=== PATIENT | male | born 1955 ===

== ENCOUNTER 2017-03-15 07:00 | Inpatient (IN) | payer OTHER ==
[~2017-03-15] VITALS: Ht 160 cm; Wt 81.6 kg
[2017-03-29] VITALS (12 sets, daily range): BP systolic 112–166; BP diastolic 64–102
[2017-03-29] MEDS ORDERED: CRESTOR40 MG ORAL (05:52)
[2017-03-29] MEDS ORDERED: CITALOPRAM HBR10 M1 ORAL (05:52)
[2017-03-29] MEDS ORDERED: ASPIRIN325 MG ORAL (05:52)
[2017-03-29] MEDS ORDERED: FOLIC ACID1 MG ORAL (05:52)
[2017-03-29] MEDS ORDERED: RAMIPRIL5 MG ORAL (05:52)
[2017-03-29] MEDS ORDERED: FAMOTIDINE20 MG ORAL (05:52)
[2017-03-29] MEDS ORDERED: METOPROLOL SUC100 MG ORAL (05:52)
[2017-03-29] MEDS ORDERED: LR 1000ml 1,000 ML IVLG SCH (06:13)
[2017-03-29] MEDS ORDERED: Metoclopramide 10mg/2ml Inj IVP PRN ×2 (06:15→07:30)
[2017-03-29] MEDS ORDERED: oxyCODONE HCL/Acetaminophen 5/325mg ORAL PRN (06:15)
[2017-03-29] MEDS ORDERED: Ketorolac 30mg Inj IV PRN (06:15)
[2017-03-29] MEDS ORDERED: Norco 7.5mg/325mg tab ORAL PRN ×2 (06:15→07:30)
[2017-03-29] MEDS ORDERED: Midazolam 2mg/2ml Inj IVP PRN (06:15)
[2017-03-29] MEDS ORDERED: DiphenhydrAMINE 50mg/ml Inj IVP PRN (06:15)
[2017-03-29] MEDS ORDERED: Ketorolac 60mg Inj IV PRN (06:15)
[2017-03-29] MEDS ORDERED: LORazepam Inj 2mg/ml 1ml IV PRN (06:15)
[2017-03-29] MEDS ORDERED: Norco 5mg/325mg tab ORAL PRN ×2 (06:15→07:30)
[2017-03-29] MEDS ORDERED: Hydromorphone 0.5mg/0.5ml inj IVP PRN (06:15)
[2017-03-29] MEDS ORDERED: Acetaminophen (Non formulary) 100 ML IV ONE (06:15)
[2017-03-29] MEDS ORDERED: Atropine Inj 1mg/10ml Syr IV PRN (06:15)
[2017-03-29] MEDS ORDERED: fentaNYL 100 mcg/2 mL IV PRN (06:15)
--- NOTE | 2017-03-29 06:15 | Anethesia Preoperative Eval ---
Anesthesia Pre-op PMH/ROS General Date of Evaluation: Mar 29, 2017 Time of Evaluation: 07:06 Anesthesiologist: Perri ASA Score: ASA 3 Mallampati Score Class I : Soft palate, uvula, fauces, pillars visible Class II: Soft palate, uvula, fauces visible Class III: Soft palate, base of uvula visible Class IV: Only hard plate visible Mallampati Classification: Class II Surgeon: Elizabeth Diagnosis: Back Pain Surgical Procedure: ALIF L3-4, L4-5, PSF L3-4, L4-5 Anesthesia History: none Social History: current smoker Family History: no anesthesia problems Allergies: Coded Allergies: IBUPROFEN (Verified Allergy, Severe, swollen eyes, 03/14/17) Medications: see eMAR Past Medical History Cardiovascular: Reports: HTN, CAD - Angina, CABG Pulmonary: Reports: other - Bronchitis Gastrointestinal/Genitourinary: Reports: GERD, other - Hiatal Hernia Hematology/Immune: Reports: anemia PSxH Narrative: CABGX3, Hiatal Hernia repair Anesthesia Pre-op Phys. Exam Physician Exam Last Vital Signs Date Time Temp Pulse Resp B/P (MAP) Pulse Ox O2 Delivery O2 Flow Rate FiO2 03/29/17 06:03 97.6 56 20 97 Room Air Constitutional: NAD Neurologic: CN 2-12 intact Cardiovascular: RRR Respiratory: CTA Gastrointestinal: S/NT/ND Airway Exam Mallampati Score: Class II MO: full ROM: limited Teeth: missing Anesthesia Pre-op A/P Risk Assessment & Plan Assessment: ASA 3 Plan: GA, BIS, GlideScope, A-Line Status Change Before Surgery: No Pre-Antibiotics Dru Grams Ancef IV Given Within 1 Hr of Incision: Yes Time Given: 07:21 Rio Rayo MD Mar 29, 2017 06:15
[2017-03-29] MEDS ORDERED: Surgicel 4in x 8in TOPIC ONE (06:44)
[2017-03-29] MEDS ORDERED: Thrombin 5000 units TOPIC ONE (06:44)
[2017-03-29] MEDS ORDERED: Heparin 5000 units/ml inj ONE (06:45)
[2017-03-29] MEDS ORDERED: Vancomycin 1gm inj IVPB ONE (06:45)
[2017-03-29] MEDS ORDERED: Bacitracin 50000 Units Vial ONE (06:46)
[2017-03-29] MEDS ORDERED: Bupivacaine 0.5% Inj 30 ml vial INJ ONE (06:46)
[2017-03-29] MEDS ORDERED: ceFAZolin sod 2 GM in D5W 110 ML IVPB ONE (07:00)
[2017-03-29] MEDS ORDERED: Propofol 1,000mg/ 100ml btl IV ONE (07:00)
[2017-03-29] MEDS ORDERED: Glycopyrrolate 0.2mg/ml 1ml Vial ONE ×2 (07:00→07:06)
[2017-03-29] MEDS ORDERED: Lidocaine 1% Plain 30 ml INJ ONE (07:00)
[2017-03-29] MEDS ORDERED: Propofol 200mg/20ml IV ONE (07:06)
[2017-03-29] MEDS ORDERED: LR 1000ml ONE (07:06)
[2017-03-29] MEDS ORDERED: Zemuron 50mg/5ml Inj IV ONE (07:06)
[2017-03-29] MEDS ORDERED: Dexamethasone 4mg/ml vial ONE (07:06)
[2017-03-29] MEDS ORDERED: Ketamine 500mg Inj ONE (07:06)
[2017-03-29] MEDS ORDERED: Neostigmine 1mg/ml 10ml Inj ONE (07:06)
[2017-03-29] MEDS ORDERED: Lidocaine 1% MPF 10mg/ml 5ml ONE (07:06)
[2017-03-29] MEDS ORDERED: fentaNYL 100 mcg/2 mL IV ONE (07:06)
--- NOTE | 2017-03-29 07:16 | Pre-Procedure Note/Attestation ---
Pre-Procedure Note/Attestation Complete Prior to Procedure Planned Procedure: not applicable Procedure Narrative: Stage 1 Anterior lumbar interbody fusion of Lumbar 34 and 45 with bmp stage 2 posterior kitchen laminectomy/solis gonzáles osteotomy of L34,45 with pedicle screw fixation Indications for Procedure Pre-Operative Diagnosis: Herniations of L34,45 and 5s1 Attestation I attest that I discussed the nature of the procedure; its benefits; risks and complications; and alternatives (and the risks and benefits of such alternatives ), prior to the procedure, with the patient (or the patient's legal sales representative door to door). I attest that, if there was a reasonable possibility of needing a blood transfusion, the patient (or the patient's legal sales representative door to door) was given the [place] [facility] [employer] [facility] standardized written summary, pursuant to the Kwabena Milo Blood Safety Act ([place] Health and Safety Code # 1645, as amended). I attest that I re-evaluated the patient just prior to the surgery and that there has been no change in the patient's H&P, except as documented below: RENEE AGUERO Mar 29, 2017 07:16
--- NOTE | 2017-03-29 07:18 | Brief Operative Note ---
Immediate Post Operative Note Operative Note Chief Complaint: Left anterior thigh pain and back pain, Pre-op Diagnosis: Herniations of L34,45 and 5s1 Procedure: Stage 1 Anterior lumbar interbody fusion of Lumbar 34 and 45 with bmp Stage 2 posterior kitchen laminectomy/solis gonzáles osteotomy of L34,45 with pedicle screw fixation Post-op Diagnosis: same as pre-op Findings: consistent w/pre-op dx studies Surgeon: Elizabeth/Enrique Telegraph Dispatcher: Fritz Anesthesiologist: Perri Anesthesia: general Specimen: none Complications: none Condition: stable Estimated Blood Loss: minimal Drains: none - Nuvasive Peek sz 14x2, Synthes screws 3x 45x6mm Implant(s) used?: Yes RENEE AGUERO Mar 29, 2017 07:18
[2017-03-29] MEDS ORDERED: Naloxone 0.4mg/ml Inj IVP PRN (07:30)
[2017-03-29] MEDS ORDERED: HYDROmorphone 1mg/ml Carpuject SUBQ PRN (07:30)
[2017-03-29] MEDS ORDERED: HYDROmorphone 1mg/ml Carpuject IVP PRN (07:30)
--- NOTE | 2017-03-29 08:24 | Immediate Post-Op Evaluation ---
Immediate Post-Op Evalulation Immediate Post-Op Evalulation Procedure: ALIF L3-4, L4-5, PSF L3-4, L4-5 Date of Evaluation: Mar 29, 2017 Time of Evaluation: 11:44 IV Fluids: 1800 LR Blood Products: 0 Estimated Blood Loss: 100 Urinary Output: 400 Blood Pressure Systolic: 127 Blood Pressure Diastolic: 76 Pulse Rate: 74 Respiratory Rate: 16 O2 Sat by Pulse Oximetry: 100 Temperature (Fahrenheit): 99 Pain Score (1-10): 3 Nausea: No Vomiting: No Complications 0 Patient Status: awake, reacts, patent, extubated, none Hydration Status: adequate Dru Grams Ancef IV Given Within 1 Hr of Incision: Yes Time Given: 07:21 Rio Rayo MD Mar 29, 2017 08:24
--- NOTE | 2017-03-29 08:26 | 48 Hour Post Anesthesia Eval ---
Post Anesthesia Evaluation Procedure: ALIF L3-4, L4-5, PSF L3-4, L4-5 Date of Evaluation: Mar 29, 2017 Time of Evaluation: 13:52 Blood Pressure Systolic: 143 0: 89 Pulse Rate: 67 Respiratory Rate: 18 Temperature (Fahrenheit): 98.6 O2 Sat by Pulse Oximetry: 98 Airway: patent Nausea: No Vomiting: No Pain Intensity: 3 Hydration Status: adequate Cardiopulmonary Status: Stable Mental Status/LOC: patient returned to baseline Follow-up Care/Observations: 0 Post-Anesthesia Complications: 0 Follow-up care needed: N/A Rio Rayo MD Mar 29, 2017 08:26
[2017-03-29] MEDS ORDERED: Ropivacaine 5mg/ml Vial 30ml INJ ONE (11:07)
[2017-03-29] MEDS ORDERED: Metoprolol Succinate XL 100mg tab ORAL ONE (14:00)
[2017-03-29] MEDS ORDERED: Chloraseptic Spray 20mL Bottle ORAL PRN ×2 (14:00)
[2017-03-29] MEDS ORDERED: Metoprolol Succinate XL 50mg tab ORAL ONE (14:00)
--- NOTE | 2017-03-29 14:36 | Diagnostic Imaging Report ---
Indication: PAIN low back and left lower extremity Technique: Digital intraoperative images Comparison: None Findings: Initial images demonstrate surgical tool projected anterior to what is presumably the L4-5 disc. Subsequent images document anterior fusion at what is presumably L3-4 and L4-5 Impression: Intraoperative imaging, as described
[2017-03-29] MEDS ORDERED: Metoprolol Succinate XL 100mg tab ORAL SCH (15:00)
[2017-03-29] MEDS: Dexamethasone 4mg/ml vial IVP SCH ×2 (15:08→21:29)
[2017-03-29] MEDS: NS w/KCl 20mEq 1,000 ML IV SCH (15:08)
--- NOTE | 2017-03-29 15:15 | Consultation ---
DATE OF CONSULTATION: 03/29/2017 VASCULAR SURGERY CONSULTATION CONSULTING PHYSICIAN: Jam Hu M.D. This is a 61-year-old male who was admitted to undergo anterior lumbar interbody fusions of L3-L5 as determined by his spine surgeon Dr. Margarito Johnson. Prior to today, the patient had received at his home my separate informed consent form, which introduced me and explained my role in the approach for the anterior lumbar spine surgery. It also outlined the possible risks and complications including, but not limited to hemorrhage, need for blood transfusions, retrograde ejaculation, wound infection, bowel or ureter injury, arterial or venous injury or thrombosis, and the remote chance of , etc. The patient read the form and brought it back to the hospital with him today. In addition, as my usual protocol, I attempted to reach the patient by phone, but was unsuccessful. However, the patient did acknowledge receiving such a call. Again as per my usual protocol, the patient was seen in the preoperative holding area where the contents of the form were reviewed and any questions were answered. He was shown the site of the incision. He had palpable bilateral dorsalis pedis pulses. He was 5 feet 3 inches tall, weighing approximately 190 pounds giving him a BMI of 34. His hematocrit was 43 with a platelet count of 186,000. His INR was 1.06 with a PTT of 29 seconds. That consent was signed with a nurse witness and signature as well and then placed into the chart. He fully understood and wished to proceed. There were no contraindications and we would proceed with the proposed operation. Jam Hu M.D. DR: EDEL JOB#: [id number] CC:
[2017-03-29] MEDS: ceFAZolin sod 1 GM in D5W 55 ML IV SCH (16:03)
[2017-03-29] MEDS: Docusate 100mg cap ORAL SCH (17:50)
--- NOTE | 2017-03-29 18:56 | Consultation ---
History of Present Illness General Date patient seen: Mar 29, 2017 Time patient seen: 15:00 Chief Complaint: intractable back pain Referring physician: Dr. Johnson Reason for Consultation: med elie Present Illness HPI 61 y/o male who presents with intractable lower back pain w/ radiculopathy 2/2 herniation of L3-4, L4-5 and L5-S1 s/p stage 1 Anterior lumbar interbody fusion of Lumbar 34 and 45 with bmp Stage 2 posterior kitchen laminectomy/solis gonzáles osteotomy of L34,45 with pedicle screw fixation on 03/29/17. No periop or postop complications. Postop pain appears well controlled. No f/c, n/v, d/c, chest pain, SOB. Allergies: Coded Allergies: IBUPROFEN (Verified Allergy, Severe, swollen eyes, 03/14/17) Medication History Scheduled Citalopram Hydrobromide* (Citalopram Hbr*), 10 MG ORAL DAILY, (Reported) Famotidine (Famotidine), 20 MG ORAL DAILY, (Reported) Folic Acid* (Folic Acid*), 1 MG ORAL DAILY, (Reported) Hydrocodone Bit/Acetaminophen 10-325* ([employer] 10-325*), 1 TAB ORAL EVERY 8 HOURS, (Reported) Metoprolol Succinate* (Metoprolol Succinate*), 100 MG ORAL DAILY, (Reported) Ramipril* (Ramipril*), 5 MG ORAL DAILY, (Reported) Rosuvastatin Calcium* (Crestor*), 40 MG ORAL DAILY, (Reported) Discontinued Medications Aspirin* (Aspirin*), 325 MG ORAL DAILY, (Reported) Discontinued Reason: MD discontinued med Patient History History Provided By: Patient, Family Member, Medical Record, PMD Healthcare decision maker MONTY SANTAMARIA - Resuscitation status Full Code Advanced Directive on File Past Medical/Surgical History Past Medical/Surgical History: (1) HTN (hypertension) (2) HLD (hyperlipidemia) (3) HNP (herniated nucleus pulposus), lumbar (4) Depression (5) GERD (gastroesophageal reflux disease) Family History Family History: (1) No significant family history Social History Social History: (1) No significant social history Review of Systems ROS Narrative CONSTITUTIONAL: No weight loss, fever, chills, weakness or fatigue. HEENT: Eyes: No visual loss, blurred vision, double vision or yellow sclerae. Ears, Nose, Throat: No hearing loss, sneezing, congestion, runny nose or sore throat. SKIN: No rash or itching. CARDIOVASCULAR: No chest pain, chest pressure or chest discomfort. No palpitations or edema. RESPIRATORY: No shortness of breath, cough or sputum. GASTROINTESTINAL: No anorexia, nausea, vomiting or diarrhea. No abdominal pain or blood. NEUROLOGICAL: No headache, dizziness, syncope, paralysis, ataxia, numbness or tingling in the extremities. No change in bowel or bladder control. MUSCULOSKELETAL: No muscle, back pain, joint pain or stiffness. HEMATOLOGIC: No anemia, bleeding or bruising. LYMPHATICS: No enlarged nodes. No history of splenectomy. PSYCHIATRIC: No history of depression or anxiety. ENDOCRINOLOGIC: No reports of sweating, cold or heat intolerance. No polyuria or polydipsia. ALLERGIES: No history of asthma, hives, eczema or rhinitis. Physical Exam Physical Exam Narrative General: alert, cooperative, no distress, appears stated age Head: normocephalic, without obvious abnormality, atraumatic Eyes: conjunctivae/corneas clear. PERRL, EOM's intact Throat: lips, mucosa, and tongue normal. MMM Neck: supple, symmetrical, trachea midline, and no JVD Lungs: clear to auscultation bilaterally Heart: regular rate and rhythm, S1, S2 normal, no murmur, click, rub or gallop Abdomen: soft, non-tender, non-distended, bowel sounds normal; no masses or organomegaly Extremities: extremities normal, atraumatic, no cyanosis or edema Pulses: 2+ and symmetric Skin: skin color, texture, turgor normal; no rashes or lesions Dressings c/d/i Neurologic: grossly normal, no focal deficits Last 24 Hour Vital Signs Date Time Temp Pulse Resp B/P (MAP) Pulse Ox O2 Delivery O2 Flow Rate FiO2 03/29/17 16:00 98.0 76 20 112/68 99 Nasal Cannula 2.0 03/29/17 15:15 98 Nasal Cannula 3.0 32 03/29/17 15:15 Nasal Cannula 3.0 32 03/29/17 15:08 75 116/67 03/29/17 14:00 98.0 81 18 123/64 98 Nasal Cannula 3.0 03/29/17 13:00 98.0 75 19 116/67 96 Nasal Cannula 2.0 03/29/17 12:30 99.6 71 21 116/71 100 Nasal Cannula 3.0 03/29/17 12:25 79 20 128/80 100 Nasal Cannula 3.0 03/29/17 12:10 76 20 129/76 100 Nasal Cannula 3.0 03/29/17 11:55 74 20 132/89 100 Simple Mask 6.0 03/29/17 11:43 76 20 129/79 100 Simple Mask 6.0 03/29/17 11:39 67 18 98 03/29/17 11:38 94 22 127/75 100 Simple Mask 6.0 03/29/17 11:37 74 16 100 03/29/17 11:33 99.0 79 16 127/78 100 Simple Mask 6.0 03/29/17 06:23 97.6 56 20 166/102 97 Room Air 03/29/17 06:03 97.6 56 20 97 Room Air Intake and Output 03/29/17 03/30/17 19:00 07:00 Intake Total 2000 ml Output Total 500 ml Balance 1500 ml Intake IV Total 2000 ml Output Urine Total 400 ml Estimated Blood Loss 100 ml Height (Feet): 5 Height (Inches): 3.00 Weight (Pounds): 180 Medications Current Medications Medications (Trade) Dose Ordered Sig/Shannan Route PRN Reason Start Time Stop Time Status Last Admin Dose Admin Acetaminophen (Tylenol) 650 mg Q4H PRN ORAL headache or temp>101 03/29/17 07:30 04/28/17 07:29 Acetaminophen/ Hydrocodone Bitart ([employer] 5/325) 1 tab Q3H PRN ORAL pain score 1-3 03/29/17 07:30 04/05/17 07:29 Acetaminophen/ Hydrocodone Bitart ([employer] 7.5/325) 1 ea Q3H PRN ORAL pain score 4-6 03/29/17 07:30 04/05/17 07:29 Acetaminophen/ Hydrocodone Bitart ([employer] 7.5/325) 2 ea Q3H PRN ORAL pain scale 7-10 03/29/17 07:30 04/05/17 07:29 Atorvastatin Calcium (Lipitor) 80 mg QHS ORAL 03/29/17 21:00 04/28/17 20:59 Carisoprodol (Soma) 350 mg TIDPRN PRN ORAL SPASM 03/29/17 07:30 04/28/17 07:29 Cefazolin Sodium 1 gm/Dextrose 55 ml @ 110 mls/hr Q8H IV 03/29/17 16:00 03/30/17 08:29 03/29/17 16:03 Cetylpyridinium Chloride (Cepacol) 1 lozenge Q2H PRN PUNEET sore throat 03/29/17 07:30 04/28/17 07:29 Citalopram Hydrobromide (celeXA) 10 mg DAILY ORAL 03/30/17 09:00 04/29/17 08:59 Dexamethasone Sodium Phosphate (Decadron 4mg/ml vial) 4 mg Q6H IVP 03/29/17 15:00 03/30/17 09:01 03/29/17 15:08 Docusate Sodium (Colace) 100 mg TWICE A DAY ORAL 03/29/17 18:00 04/28/17 17:59 03/29/17 17:50 Folic Acid (Folate) 1 mg DAILY ORAL 03/30/17 09:00 04/29/17 08:59 Hydromorphone HCl (Dilaudid) 1 mg Q2H PRN IVP Breakthrough Pain 03/29/17 07:30 04/05/17 07:29 Hydromorphone HCl (Dilaudid) 1 mg Q4H PRN SUBQ Mild Pain (Pain Scale 1-3) 03/29/17 07:30 04/05/17 07:29 Hydromorphone HCl (Dilaudid) 2 mg Q3H PRN SUBQ Severe Pain (Pain Scale 7-10) 03/29/17 07:30 04/05/17 07:29 Hydromorphone HCl (Dilaudid) 2 mg Q4H PRN SUBQ Moderate Pain (Pain Scale 4-6) 03/29/17 07:30 04/05/17 07:29 Metoclopramide HCl (Reglan) 10 mg Q6H PRN IVP Nausea & Vomiting 03/29/17 07:30 04/28/17 07:29 Metoprolol Succinate (Toprol XL) 100 mg QPM ORAL 03/30/17 16:30 04/29/17 16:29 Naloxone HCl (Narcan) 0.1 mg PRN PRN IVP RR<12/min, pt unarousable 03/29/17 07:30 04/28/17 07:29 Ondansetron HCl (Zofran) 4 mg Q6H PRN IVP Nausea & Vomiting 03/29/17 07:30 04/28/17 07:29 03/29/17 15:08 Phenol/Menthol (Chloraseptic) 1 spray Q3H PRN ORAL sore throat 03/29/17 14:00 04/28/17 13:59 Prochlorperazine (Compazine) 10 mg Q6H PRN IVP Nausea & Vomiting 03/29/17 07:30 04/28/17 07:29 Ramipril (Altace) 5 mg DAILY ORAL 03/30/17 09:00 04/29/17 08:59 Ranitidine HCl (Zantac) 150 mg BEFORE DINNER ORAL 03/29/17 16:30 04/28/17 16:29 03/29/17 16:49 Sodium Chloride 1,000 ml @ 100 mls/hr Q10H IV 03/29/17 15:00 04/28/17 14:59 03/29/17 15:08 Temazepam (Restoril) 15 mg HSPRN PRN ORAL Insomnia 03/29/17 07:30 04/05/17 07:29 Assessment/Plan Problem List: (1) HNP (herniated nucleus pulposus), lumbar ICD Codes: M51.26 - Other intervertebral disc displacement, lumbar region SNOMED: 138829457 (2) HTN (hypertension) ICD Codes: I10 - Essential (primary) hypertension SNOMED: 03500331 (3) HLD (hyperlipidemia) ICD Codes: E78.5 - Hyperlipidemia, unspecified SNOMED: 17488504 (4) Depression ICD Codes: F32.9 - Major depressive disorder, single episode, unspecified SNOMED: 60286253 (5) GERD (gastroesophageal reflux disease) ICD Codes: K21.9 - Gastro-esophageal reflux disease without esophagitis SNOMED: 271318615 Status: stable Assessment/Plan Appreciate surgery rec's s/p stage 1 Anterior lumbar interbody fusion of Lumbar 34 and 45 with bmp Stage 2 posterior kitchen laminectomy/solis gonzáles osteotomy of L34,45 with pedicle screw fixation on 03/29/17 Post operative recommendations include: - encourage mobilization/ambulation - encourage incentive spirometry to optimize pulmonary hygiene - DVT/GI prophylaxis as appropriate--SCDs - PT/OT - pain control, supportive care, bowel regimen D/w pt, RN, surgery regarding mgmt and dispo Shawna Acharya M.D. Mar 29, 2017 18:56
[2017-03-29] MEDS ORDERED: Atorvastatin 80mg tab ORAL SCH (21:00)
[2017-03-29] MEDS: Norco 7.5mg/325mg tab ORAL PRN (21:30)
--- NOTE | 2017-03-29 21:31 | Operative Note - Dictated ---
DATE OF OPERATION: 03/29/2017 OPERATIONS: 1. Muscle sparing anterior abdominal retroperitoneal approach for anterior lumbar interbody fusions (two levels). 2. Mobilization of the left iliac artery and aorta. 3. Mobilization of the left iliac vein and ligation of the iliolumbar vein. 4. Plastic closure repair of abdominal wound. CO-SURGEONS: 1. Jam Hu M.D. 2. Margarito Johnson M.D. ANESTHESIA: General. PREOPERATIVE DIAGNOSIS: Degenerative disk disease L3-L4 and L4-L5. POSTOPERATIVE DIAGNOSIS: Degenerative disk disease L3-L4 and L4-L5. DESCRIPTION OF PROCEDURE: Prior to surgery, the patient had received at his home my separate informed consent form which introduced me and explained my role in the approach for the anterior lumbar spine surgery. It also outlined the possible risks and complications, including, but not limited to hemorrhage, need for blood transfusions, wound infection, retrograde ejaculation, arterial or venous injury or thrombosis, bowel or ureter injury and remote chance of , etc. The patient read the form and brought it back to the hospital with him. Today, he was seen in the preoperative holding area with the content of the form were reviewed and any questions were answered. He was shown the site of the incision. He had palpable bilateral dorsalis pedis pulses. That consent was signed with a nurse witness and signature as well and then placed into the chart. He fully understood and wished to proceed. A preoperative vascular surgery consultation report was dictated. The patient was taken into the operating room and placed in a supine position. Using an endotracheal tube, he was placed under general anesthesia without difficulty. His abdomen was prepped and draped in the usual sterile manner. An appropriate time-out was obtained. An oblique incision was made in the left abdomen beginning in the lower midline and carried down through the subcutaneous tissues down to the rectus fascia. Hemostasis was achieved using electrocautery. The rectus fascia was incised with extension into the fibers of the external oblique aponeurosis. Elevation of the rectus fascia away from the anterior surface of the muscle was then carried out for a distance of approximately 4 cm cephalad. This would allow for retraction of the rectus muscle laterally and noted to obtain direct anterior-posterior approach to the anterior surface of the spine. The inferior epigastric vessels were identified and preserved. The posterior fascia was then incised and carefully from the peritoneum. Laterally, the retroperitoneal space was entered down to the left psoas muscle. There was some scarring and adhesions secondary to an apparent hernia repair using mesh but eventually the retroperitoneal was entered. The left ureter was identified and protected as it was mobilized with the peritoneum more medially into the left iliac artery was identified. Deep self-retaining retractors such as Elizabeth and Bookwalter were utilized to hold the abdominal wall and peritoneal contents in place while further dissection was carried out. The left iliac artery is now mobilized for its entire length as was the left lateral aspect of the aorta. Deeper dissection revealed the common iliac vein, which was mobilized down to its iliolumbar branch. This branch was ligated using 0 silk with hemoclips placed and transected. Any other venous tributaries in the area were controlled with hemoclips and transected. This allowed for mobilization of the iliac vessels both anteriorly and to the right to allow proper visualization of the anterior surface of the spine. Segmental vessels were taken between hemoclips and transected. Careful blunt dissection was carried out to preserve the sympathetic chains laterally and then utilize to expose the anterior surface of the multiple vertebral bodies and intervening disk space. Several malleable retractor blades were now placed in all quadrants of the rectus muscle retracted laterally which allowed exposure and direct anterior-posterior approach to the anterior surface of the spine. A needle was inserted into the appropriate disk space and an x-ray was taken to verify the exposure. The spine surgeon then proceeded to perform diskectomy. After multiple levels and fusion, which will be dictated in a separate report by the spine surgeon Dr. Johnson. Antibiotic irrigation had been carried out. The malleable retractors were removed. Vancomycin powder had been left in the retroperitoneum. The iliac vessels were checked and there was good flow without thrill or spasm in the artery as well as no tear or thrombosis within the left iliac vein. A further check for hemostasis was made and the integrity of the ureter was verified. The peritoneum was allowed to return to its anatomical location and then the posterior sheath approximated using continuous running suture of 2-0 Vicryl. The anterior rectus sheath was approximated using #1 Vicryl. The subcutaneous tissues were irrigated using dilute Betadine solution as well as antibiotic solution and hemostasis noted to be achieved. Plastic closure repair of the abdominal wound was continued using 2-0 Vicryl followed by skin approximation using continuous subcuticular suture of 3-0 Monocryl. Steri-Strips were applied. Dry sterile gauze OpSite dressings were applied. The sponge, pad, needle and instrument counts reported as correct. Estimated blood loss was 100 mL. There were no complications during this procedure. The patient tolerated the procedure well and left for the recovery room in satisfactory condition. At completion of the procedure, the patient had maintenance of strong palpable bilateral dorsalis pedis pulses and the pulse oximeter registered 100% on the left foot. Jam Hu M.D. DR: FOREIGN JOB#: [id number] CC:
[2017-03-30] VITALS: BP 121/81
[2017-03-30] MEDS: ceFAZolin sod 1 GM in D5W 55 ML IV SCH ×2 (00:21→08:46)
[2017-03-30] MEDS: NS w/KCl 20mEq 1,000 ML IV SCH ×2 (00:22→10:33)
--- NOTE | 2017-03-30 02:16 | Operative Note - Dictated ---
DATE OF OPERATION: 03/29/2017 Stage 1 of 2. SURGEON: Margarito Johnson M.D., Orthopaedic Spine Surgeon VASCULAR SURGEON: Jam Hu M.D. COMMISSIONED FIRE OFFICER SURGEON: Nicola Nunez M.D. ANESTHESIA: General endotracheal anesthesia. PREOPERATIVE DIAGNOSES: 1. Intractable back pain. 2. Intractable leg pain. 3. Worsening radiculopathy. 4. Weakness. 5. Herniated nucleus pulposus, L3-4 and L4-5 , L5S1 with herniation. 6. Neural foraminal stenosis, L3-4 and L4-5 with herniation. POSTOPERATIVE DIAGNOSES: 1. Intractable back pain. 2. Intractable leg pain. 3. Worsening radiculopathy. 4. Weakness. 5. Herniated nucleus pulposus, L3-4 and L4-5 herniation. 6. Neural foraminal stenosis, L3-4 and L4-5 herniation. PROCEDURES PERFORMED: 1. Radical anterior lumbar intervertebral L3-4 and L4-5 discectomy. 2. Anterior lumbar interbody fusion using NuVasive PEEK interbody cage size 14 mm, 12 degrees with large bone morphogenetic protein and 10 mL of allograft Chesterfield putty. 3. Anterior lumbar plating and fixation at L3-L4 and L4-L5, each one had 4 screws of 25 mm length, it gives a total of 8. 4. Anterior retroperitoneal exposure. 5. Supervision and interpretation of intraoperative fluoroscopy. 6. Supervision and interpretation of somatosensory-evoked potential and free running EMG monitoring. ESTIMATED BLOOD LOSS: COMPLICATIONS: None. INDICATIONS FOR THE PROCEDURE: The patient is a 61-year-old male who presents for intractable back pain and radiculopathy, which is well documented in our clinical chart and records. We had a long discussion with [facility] regarding definitive surgical treatment options. We had a long discussion with the patient regarding the risks, alternatives, and benefits of procedure. Our description of the risks included a discussion in person as well as a signed consent which detailed all pertinent risks and the procedure itself. Briefly, our discussion included but was not limited to infection, bleeding, pseudarthrosis, spinal cord injury, neurovascular injury, dural tear, CSF leak, neuropathy, paralysis, permanent weakness/drop foot, paresthesias, blindness, palsy and weakness. The patient understood there may be a need for revision surgery or additional procedures. Approach-related complications including dysphonia, dysphagia, blindness, permanent vocal cord and neural injury, hematoma, swallowing and breathing difficulty; medical complications including liver, kidney, shock, and cardiopulmonary failure; anesthesia complications including , swelling, damage to the musculature, larynx , esophagus, trachea, blood vessels and muscles and lungs during this surgical procedure. Injury to deeper structures may be temporary or permanent. The patient understood these and elected to proceed. A written and verbal consent was given. We discussed the pros and cons of all the alternatives. We discussed the uncertainties associated with the decision. Afterwards, I assessed the patients understanding and explored their preferences. All questions were answered and no guarantees were given. Medical clearance was obtained prior to surgery. OPERATIVE FINDINGS: Intraoperatively during the procedure, the patient was noted to be significantly unstable and developed hypertensive bouts, which needed medication control. His blood pressures ranged as high as 193 at some point of the procedure. DESCRIPTION OF PROCEDURE: There was a large rent and tear in the posterior annulus of L3-4 and L4-5, which was acute in nature, had some herniated disk fragments pressing on the neural elements. The disk has L3-4 on the left, behind the disk of L4-5 also on the left side, which was compressing the neural foramina. Intraoperatively during the procedure, the patient was noted to be significantly unstable and developed hypertensive bouts, which needed medication control. His blood pressures ranged as high as 193 at some point of the procedure. A discussion was made with Vascular Surgery and Anesthesiology. It would be unwise to proceed with stage 2 from a safety standpoint and as such, we elected to stage the surgery for another day. We will do the posterior part of the procedure another day. Under the benefit of general endotracheal anesthesia and with the assistance of the entire operative team, the patient was moved from the [facility] onto the operative table in the supine position on a radiolucent frame. The head was secured and positioned appropriately. Bilateral arms were secured with Gel Pads and foam and all bony prominences were padded. The bilateral lower extremity SCD and LEBRON hose were placed for DVT prophylaxis. A surgical timeout was called, which corroborated our planned procedure. Preoperative antibiotics were administered within 30 minutes of the incision for prophylaxis. Using lateral radiography, the operative levels were delineated. An incision was marked based on our interpretation of lateral radiography and afterwards the body was prepped and draped in the usual sterile manner. The family was notified that we were ready to commence surgery and were called in the waiting room hourly for updates. An incision was based on our lateral fluoroscopic image to center the incision at the L3-4 and L4-5 interspaces. The wound was prepped and draped in the usual sterile fashion. Using a scalpel, a standard retroperitoneal exposure was performed by our vascular surgeon Dr. Jam Hu and this is delineated in a separate operative note. After appropriate exposure at the L4-5 disc space, we next turned our attention towards our radical discectomy. This was performed in standard fashion first beginning with a gentle mobilization of all superficial soft tissue overlying the disc space with Kittners. After this was performed, we marked our midline and confirmed our disc space on AP and lateral fluoroscopy. Next, using a 10 blade long-handled scalpel, the disc was resected from the endplates in a box discectomy technique. Next using Hook elevators, the disc was mobilized off each endplate. After this, using a large Leksell rongeurs, the entire disc was removed from the intervertebral space. All residual disc and cartilaginous endplates were resected using a combination of small and medium curettage, pituitaries, size 4 and size 6 Kerrison rongeurs. Next, the endplates were distracted in a parallel fashion using the S[address] street light lamp cleaner and a 7.5 Thandle. At this point the PLL was resected using a small curette and a Kerrison 4 rongeur. Next the endplates were resected down to bleeding subchondral bone using a ring and box curette. For any residual bleeding which we encountered at this point, this was maintained and controlled with a combination of FloSeal, Gelfoam and bipolar cautery. Afterwards, Tisseel was used to seal the discectomy site dorsally. Next I then trialed the interspace for height, width and depth. This was confirmed on fluoroscopy and, once satisfied with our fit, we loaded and inserted a NuVasive PEEK interbody cage size 14 mm, 12 degrees with large bone morphogenetic protein and 10 mL of allograft [place] bone under AP and lateral fluoroscopy. AP and lateral fluoroscopy confirmed excellent placement at the L4-5 interspace. Afterwards, we turned our attention towards plating from the NuVasive Brigade Interlock system. This anterior lumbar plating and fixation at L4-5 using 4 screws of 25 mm length. Final radiographs confirmed appropriate placement of all hardware, screws and our PEEK cages along with a zoroastrian of the lumbar lordosis. Afterwards, Tisseel was used to seal the discectomy site ventrally. FloSeal and Zosyn antibiotics were placed directly on the anterior fusion site. Second Level: L3-4. After appropriate exposure at the L3-4 disc space, we next turned our attention towards our radical discectomy. This was performed in standard fashion first beginning with a gentle mobilization of all superficial soft tissue overlying the disc space with Kittners. After this was performed, we marked our midline and confirmed our disc space on AP and lateral fluoroscopy. Next using a 10 blade long-handled scalpel, the disc was resected from the endplates in a box discectomy technique. Next, using Hook elevators, the disc was mobilized off each endplate. After this, using a large Leksell rongeurs, the entire disc was removed from the intervertebral space. All residual disc and cartilaginous endplates were resected using a combination of small and medium curettage, pituitaries, size 4 and size 6 Kerrison rongeurs. Next the endplates were distracted in a parallel fashion using the S[address] street light lamp cleaner and a 7.5 Thandle. At this point, the PLL was resected using a small curette and a Kerrison 4 rongeur. Next the endplates were resected down to bleeding subchondral bone using a ring and box curette. For any residual bleeding which we encountered at this point, this was maintained and controlled with combination of FloSeal, Gelfoam and bipolar cautery. Afterwards, Tisseel was used to seal the discectomy site dorsally. Next, I then trialed the interspace for height , width and depth. This was confirmed on fluoroscopy and once satisfied with our fit, we loaded and inserted a NuVasive PEEK interbody cage size 14 mm, 12 degrees with large bone morphogenetic protein and 10 mL of allograft Xu putty under AP and lateral fluoroscopy. AP and lateral fluoroscopy confirmed excellent placement at the L3-4 interspace. Afterwards, we turned our attention towards plating from the NuVasive Brigade Interlock system. This anterior lumbar plating and fixation at L3-4 using 4 screws of 25 mm length. Final radiographs confirmed appropriate placement of all hardware, screws and our PEEK cages along with a zoroastrian of the lumbar lordosis. Afterwards, Tisseel was used to seal the discectomy site ventrally. FloSeal and Zosyn antibiotics were placed directly on the anterior fusion site. Intraoperatively during the procedure, the patient was noted to be significantly unstable and developed hypertensive bouts, which needed medication control. His blood pressures ranged as high as 193 at some point of the procedure. A discussion was made with Vascular Surgery and Anesthesiology. It would be unwise to proceed with stage 2 from a safety standpoint and as such, we elected to stage the surgery for another day. We will do the posterior part of the procedure another day. The wounds were copiously irrigated with antibiotic impregnated saline. Afterwards, FloSeal was placed to address residual bleeding. Powdered antibiotics were directly poured into the wound to provide for direct antibiosis. Next, I turned my attention to closure. Fascial closure was performed with 1-0 Vicryl suture. Subcutaneous tissues were reapproximated with 2-0 Vicryl. The superficial subcutaneous skin was closed with a running Monocryl and Dermabond. Dressings consisted of Tegaderm and 4 x 4 gauze. The patient tolerated the procedure well and after discussion with our vascular surgeon and our anesthesiologist, we made the determination to proceed with stage 2 of 2 our posterior based approach. The details of stage 1 of the surgery were related to the patients family/representatives upon the conclusion of the procedure in the family waiting room. Margarito Johnson M.D. DR: BETTYE JOB#: [id number] CC: TATYANA
[2017-03-30] MEDS: Dexamethasone 4mg/ml vial IVP SCH ×2 (03:16→08:50)
[2017-03-30 04:00] VITALS: BP 132/80
[2017-03-30 08:03] VITALS: BP 137/86
[2017-03-30] MEDS: Docusate 100mg cap ORAL SCH (08:48)
[2017-03-30] MEDS: Norco 7.5mg/325mg tab ORAL PRN ×2 (08:48→15:46)
[2017-03-30] MEDS ORDERED: Ramipril 5mg cap ORAL SCH (09:00)
[2017-03-30] MEDS ORDERED: Citalopram Hydrobromide 10mg Tab ORAL SCH (09:00)
[2017-03-30 11:50] VITALS: BP 128/82
[2017-03-30 15:46] VITALS: BP 128/82
[2017-03-30] MEDS ORDERED: NORCO 10-325 T1 EACH ORAL (16:00)
[2017-03-30] MEDS ORDERED: Metoprolol Succinate XL 100mg tab ORAL SCH (16:30)
--- NOTE | 2017-03-31 00:29 | Discharge Summary ---
Discharge Summary Hospital Course Date of Admission Mar 29, 2017 at 05:17 Date of Discharge Mar 30, 2017 at 17:02 Admitting Diagnosis Lumbar radiculopathy 2/2 lumbar disc herniation Reason for Hospitalization: Surgery HPI Jens Maciel is a 61 year old male who was admitted on Mar 29, 2017 at 05:17 for Lumbar Herniated Radiculopathy Consultations Surgery Procedures Stage 1 Anterior lumbar interbody fusion of Lumbar 34 and 45 with bmp Stage 2 posterior kitchen laminectomy/solis gonzáles osteotomy of L34,45 with pedicle screw fixation on 03/29/17 Hospital Course Pt underwent s/p stage 1 Anterior lumbar interbody fusion of Lumbar 34 and 45 with bmp Stage 2 posterior kitchen laminectomy/solis gonzáles osteotomy of L34,45 with pedicle screw fixation on 03/29/17. Pt tolerated procedure well. Once pain controlled, tolerating PO, passing gas and cleared by PT/OT, pt was discharged home. Discharge Medications Continued Medications: Citalopram Hydrobromide* (Citalopram Hbr*) 10 Mg Tablet 10 MG ORAL DAILY, TAB Famotidine (Famotidine) 20 Mg Tablet 20 MG ORAL DAILY, #30 TAB 0 Refills Folic Acid* (Folic Acid*) 1 Mg Tablet 1 MG ORAL DAILY, TAB Hydrocodone Bit/Acetaminophen 10-325* (Kopperl 10-325*) 1 Each Tablet 1 TAB ORAL EVERY 8 HOURS, #90 TAB 0 Refills PRN PAIN Metoprolol Succinate* (Metoprolol Succinate*) 100 Mg Tab.er.24h 100 MG ORAL DAILY, TAB Ramipril* (Ramipril*) 5 Mg Capsule 5 MG ORAL DAILY, #30 CAP 0 Refills Rosuvastatin Calcium* (Crestor*) 40 Mg Tablet 40 MG ORAL DAILY, TAB Discontinued Medications: Aspirin* (Aspirin*) 325 Mg Tablet 325 MG ORAL DAILY, TAB Discharge Discharge Disposition Patient was discharged to Home (01) Discharge Diagnoses: (1) HNP (herniated nucleus pulposus), lumbar (2) HTN (hypertension) (3) HLD (hyperlipidemia) (4) Depression (5) GERD (gastroesophageal reflux disease) Shawna Acharya M.D. Mar 31, 2017 00:29
--- NOTE | 2017-03-31 15:15 | Discharge Summary ---
DATE OF ADMISSION: 03/29/2017 DATE OF DISCHARGE: 03/30/2017 PROCEDURE PERFORMED DURING ADMISSION: Anterior lumbar interbody fusion of L3-L4 and L4-L5. REASON FOR ADMISSION: Herniated nucleus pulposus of L3-L4 and L4-L5. HOSPITAL COURSE: DISCHARGE PHYSICAL EXAMINATION: 1. The patient was ambulating with and without the assistance of physical therapy. 2. Prior to discharge home, incision was clean and dry with minimal swelling. 3. Follows commands. 4. Alert and oriented. 5. Fernandes discontinued, voiding. 6. Incentive spirometer at bedside. 7. IVF Hep locked. MOTOR: Demonstrates expected postoperative bulk and tone. Moves biceps, triceps, and deltoid musculature on command. Moves hip flexors, quadriceps, tibialis anterior, EHL, gastrocsoleus musculature on command as well. TREATMENT RENDERED: 1. Daily nursing care. 2. Physical Therapy. 3. Occupational Therapy. 4. Intravenous medications. 5. Oral medications. 6. Daily postoperative examinations by Spine surgery team. CONDITION OF THE PATIENT ON DISCHARGE: The condition on discharge is stable for discharge to home. DISCHARGE INSTRUCTIONS: Our specific instructions relating to physical activity, medications diet and followup care are detailed in our standard operative folder and were given to this patient prior to surgery. We will however summarize these briefly as stated below. Regarding physical activity, we would like the patient to limit their flexion, extension and rotation. We also require a limitation on their bending, lifting and twisting. All medications have been called in prior to surgery to their pharmacy of choice. They can resume their regular diet, once tolerated. We would like them to shower and limit soaking the wound in a tub/Jacuzzi/the ocean for a period of one month or until the incision is completely healed. We will have them follow up in our office in three weeks time for their regularly scheduled appointment. They understand to call our office tomorrow to schedule the time for their three week followup appointment. The patient will notify us should they experience any increase in the severity of pain, redness/swelling/ or drainage from their incision. Margarito Johnson M.D. DR: ALYSIA/fabricio JOB#: [id number] CC:
== END 2017-03-30 17:02 | disposition home or self-care (01) | DRG 460 ==
LOC: SDSOVERFLO 03-29 05:17 → 3E 03-29 12:38
PROC: XRG New Technology, Joints, Fusion (ICD-10-PCS; principal; 2017-03-29 07:00)
PROC: 0ST20ZZ Resection of Lumbar Vertebral Disc, Open Approach (ICD-10-PCS; principal; 2017-03-29 07:00)
PROC: 4A11X4G Monitoring of Peripheral Nervous Electrical Activity, Intraoperative, External Approach (ICD-10-PCS; principal; 2017-03-29 07:00)
DX: M51.16 Intervertebral disc disorders with radiculopathy, lumbar region (principal); I10 Essential (primary) hypertension; I25.10 Atherosclerotic heart disease of native coronary artery without angina pectoris; Z95.1 Presence of aortocoronary bypass graft; E78.5 Hyperlipidemia, unspecified; F32.9 Major depressive disorder, single episode, unspecified; K21.9 Gastro-esophageal reflux disease without esophagitis; M48.061 Spinal stenosis, lumbar region without neurogenic claudication
CPT/HCPCS: 36415; 72020; 76001; 86850; 86900; 86901; 87081; 94003; 94150; 94760; J2405; J2710

== ENCOUNTER 2017-05-01 07:00 | Inpatient (IN) | payer OTHER ==
[~2017-05-01] VITALS: Ht 160 cm; Wt 79.4 kg
[~2017-05-01 07:00] MED LIST: ASPIRIN325 MG ORAL; CITALOPRAM HBR10 M1 ORAL; CRESTOR40 MG ORAL; FAMOTIDINE20 MG ORAL; FOLIC ACID1 MG ORAL; METOPROLOL SUC100 MG ORAL; NORCO 10-325 T1 EACH ORAL; RAMIPRIL5 MG ORAL
[2017-05-14] VITALS (12 sets, daily range): BP systolic 106–141; BP diastolic 68–91
[2017-05-14] MEDS ORDERED: Propofol 1,000mg/ 100ml btl IV ONE (06:00)
[2017-05-14] MEDS ORDERED: Thrombin 5000 units TOPIC ONE ×3 (06:26→09:10)
[2017-05-14] MEDS ORDERED: Bacitracin 50000 Units Vial ONE (06:27)
[2017-05-14] MEDS ORDERED: Ropivacaine 5mg/ml Vial 30ml INJ ONE (06:27)
[2017-05-14] MEDS ORDERED: Vancomycin 1gm inj IVPB ONE ×2 (06:27→11:08)
[2017-05-14] MEDS ORDERED: Lidocaine 1% 10mg/ml/EPI 0.01mg/ml 50ml INJ ONE (06:27)
[2017-05-14] MEDS ORDERED: Midazolam 2mg/2ml Inj IVP PRN (06:30)
[2017-05-14] MEDS ORDERED: oxyCODONE HCL/Acetaminophen 5/325mg ORAL PRN (06:30)
[2017-05-14] MEDS ORDERED: LORazepam Inj 2mg/ml 1ml IV PRN (06:30)
[2017-05-14] MEDS ORDERED: HYDROcodone/Acetamin 7.5/325 tab ORAL PRN ×2 (06:30→07:30)
[2017-05-14] MEDS ORDERED: DiphenhydrAMINE 50mg/ml Inj IVP PRN (06:30)
[2017-05-14] MEDS ORDERED: Metoclopramide 10mg/2ml Inj IVP PRN ×2 (06:30→07:30)
[2017-05-14] MEDS ORDERED: Norco 5mg/325mg tab ORAL PRN ×2 (06:30→07:30)
[2017-05-14] MEDS ORDERED: Ketorolac 60mg Inj IV PRN (06:30)
[2017-05-14] MEDS ORDERED: Ketorolac 30mg Inj IV PRN (06:30)
[2017-05-14] MEDS ORDERED: LR 1000ml 1,000 ML IVLG SCH (06:30)
[2017-05-14] MEDS ORDERED: Hydromorphone 0.5mg/0.5ml inj IVP PRN (06:30)
[2017-05-14] MEDS ORDERED: Labetalol 5mg/ml 20ml vial IV PRN (06:30)
[2017-05-14] MEDS ORDERED: Atropine Inj 1mg/10ml Syr IV PRN (06:30)
[2017-05-14] MEDS ORDERED: fentaNYL 100 mcg/2 mL IV PRN (06:30)
--- NOTE | 2017-05-14 06:31 | Anethesia Preoperative Eval ---
Anesthesia Pre-op PMH/ROS General Date of Evaluation: May 14, 2017 Time of Evaluation: 07:11 Anesthesiologist: Perri ASA Score: ASA 3 Mallampati Score Class I : Soft palate, uvula, fauces, pillars visible Class II: Soft palate, uvula, fauces visible Class III: Soft palate, base of uvula visible Class IV: Only hard plate visible Mallampati Classification: Class II Surgeon: Elizabeth Diagnosis: Back Pain Surgical Procedure: PSF L3-4, L4-5, Microdiscectomy L5-S1 Anesthesia History: none Family History: no anesthesia problems Allergies: Coded Allergies: IBUPROFEN (Verified Allergy, Severe, swollen eyes, 03/14/17) Medications: see eMAR Past Medical History Cardiovascular: Reports: HTN, CAD - Angina, CABG, other - HL Pulmonary: Reports: other - Bronchitis Gastrointestinal/Genitourinary: Reports: GERD - Hiatal Hernia Hematology/Immune: Reports: anemia Other: obesity - BMI 32 PSxH Narrative: ALIF, CABG, Hiatal Hernia Anesthesia Pre-op Phys. Exam Physician Exam Vital Signs Date Time Temp Pulse Resp B/P (MAP) Pulse Ox O2 Delivery O2 Flow Rate FiO2 05/14/17 06:37 96.7 54 18 140/86 99 Room Air Constitutional: NAD Neurologic: CN 2-12 intact Cardiovascular: RRR Respiratory: CTA Gastrointestinal: S/NT/ND Airway Exam Mallampati Score: Class II MO: full ROM: limited Teeth: missing Anesthesia Pre-op A/P Risk Assessment & Plan Assessment: ASA 3 Plan: GA, BIS, GlideScope , A-Line Status Change Before Surgery: No Pre-Antibiotics Dru Grams Ancef IV Given Within 1 Hr of Incision: Yes Time Given: 07:31 Rio Rayo MD May 14, 2017 06:31
[2017-05-14] MEDS ORDERED: Lidocaine 1% Plain 30 ml INJ ONE (07:00)
[2017-05-14] MEDS ORDERED: ceFAZolin sod 2 GM in D5W 110 ML IVPB ONE (07:00)
[2017-05-14] MEDS ORDERED: LR 1000ml ONE (07:00)
[2017-05-14] MEDS ORDERED: Sterile Water Irrig 1000ml IRRIG ONE (07:00)
[2017-05-14] MEDS ORDERED: Midazolam 2mg/2ml Inj ONE (07:00)
[2017-05-14] MEDS ORDERED: ePHEDrine 50mg/ml Inj ONE (07:00)
[2017-05-14] MEDS ORDERED: Dexamethasone 4mg/ml vial ONE (07:00)
[2017-05-14] MEDS ORDERED: Glycopyrrolate 0.2mg/ml 1ml Vial ONE (07:00)
[2017-05-14] MEDS ORDERED: fentaNYL 100 mcg/2 mL IV ONE (07:00)
[2017-05-14] MEDS ORDERED: Sugammadex Sodium 200mg/2ml vial IV ONE (07:00)
[2017-05-14] MEDS ORDERED: Sodium Chloride 10ml vial INJ ONE (07:00)
[2017-05-14] MEDS ORDERED: NS Irrig 1000ml ONE (07:00)
[2017-05-14] MEDS ORDERED: Zemuron 50mg/5ml Inj IV ONE (07:00)
[2017-05-14] MEDS ORDERED: Lidocaine 1% MPF 10mg/ml 5ml ONE (07:00)
--- NOTE | 2017-05-14 07:16 | Pre-Procedure Note/Attestation ---
Pre-Procedure Note/Attestation Complete Prior to Procedure Planned Procedure: not applicable Procedure Narrative: Lumbar 34, and 45 kitchen laminectomy solis gonzáles osteotomy with pedicle screw fixation and left sided L5s1 microdiscectomy hemilaminotomy foraminotomy Indications for Procedure Pre-Operative Diagnosis: Pars fractures L3,4,and L5S1 herniation Attestation I attest that I discussed the nature of the procedure; its benefits; risks and complications; and alternatives (and the risks and benefits of such alternatives ), prior to the procedure, with the patient (or the patient's legal financial sales representative). I attest that, if there was a reasonable possibility of needing a blood transfusion, the patient (or the patient's legal financial sales representative) was given the [place] [employer] standardized written summary, pursuant to the Kwabena Milo Blood Safety Act ([place] Health and Safety Code # 1645, as amended). I attest that I re-evaluated the patient just prior to the surgery and that there has been no change in the patient's H&P, except as documented below: RENEE AUGERO May 14, 2017 07:16
--- NOTE | 2017-05-14 07:18 | Brief Operative Note ---
Immediate Post Operative Note Operative Note Chief Complaint: Intractable back pain and radiculopathy Pre-op Diagnosis: Pars fractures L3,4,and L5S1 herniation Procedure: L3,L4, L5 solis gonzáles osteotomy/kitchen laminectomy pedicle screw fixation and L5S1 left sided microdiscectomy hemilaminotomy foraminotomy Post-op Diagnosis: same as pre-op Findings: consistent w/pre-op dx studies Surgeon: Elizabeth Dampener: Enrique Anesthesiologist: Perri Anesthesia: general Specimen: none Complications: none Condition: stable Estimated Blood Loss: minimal Drains: none Implant(s) used?: Yes - Synthes emergent screws 45x6 total of 6 RENEE AGUERO May 14, 2017 07:18
[2017-05-14] MEDS ORDERED: Naloxone 0.4mg/ml Inj IVP PRN (07:30)
[2017-05-14] MEDS ORDERED: Chloraseptic Spray 20mL Bottle ORAL PRN (07:30)
[2017-05-14] MEDS ORDERED: HYDROmorphone 1mg/ml Carpuject IVP PRN (07:30)
[2017-05-14] MEDS ORDERED: HYDROmorphone 1mg/ml Carpuject SUBQ PRN (07:30)
[2017-05-14] MEDS ORDERED: Milk of Magnesia 30ml Ud ORAL PRN (07:30)
--- NOTE | 2017-05-14 08:37 | Immediate Post-Op Evaluation ---
Immediate Post-Op Evalulation Immediate Post-Op Evalulation Procedure: PSF L3-4, L4-5, Microdiscectomy L5-S1 Date of Evaluation: May 14, 2017 Time of Evaluation: 12:23 IV Fluids: 2000 LR Blood Products: 0 Estimated Blood Loss: 100 Urinary Output: 200 Blood Pressure Systolic: 139 Blood Pressure Diastolic: 80 Pulse Rate: 68 Respiratory Rate: 16 O2 Sat by Pulse Oximetry: 100 Temperature (Fahrenheit): 99.3 Pain Score (1-10): 3 Nausea: No Vomiting: No Complications 0 Patient Status: awake, reacts, patent, extubated, none Hydration Status: adequate Dru Grams Ancef IV Given Within 1 Hr of Incision: Yes Time Given: 07:31 Rio Rayo MD May 14, 2017 08:37
[2017-05-14] MEDS: Docusate 100mg cap ORAL SCH ×2 (09:00→18:53)
[2017-05-14] MEDS ORDERED: Acetaminophen (Non formulary) 100 ML IV ONE (09:30)
[2017-05-14] MEDS: ceFAZolin sod 1 GM in D5W 55 ML IV SCH (16:19)
[2017-05-14] MEDS: NS w/KCl 20mEq 1,000 ML IV SCH (16:19)
[2017-05-14] MEDS: HYDROcodone/Acetamin 7.5/325 tab ORAL PRN ×2 (16:41→20:49)
--- NOTE | 2017-05-14 17:22 | Consultation ---
History of Present Illness General Date patient seen: May 14, 2017 Time patient seen: 17:00 Chief Complaint: intractable lower back pain Referring physician: Dr. Johnson Reason for Consultation: med elie Present Illness HPI 62y/o male with intractable lower back pain 2/2 pars fractures L3,4,and L5S1 herniation who presents s/p L3,L4, L5 solis gonzáles osteotomy/kitchen laminectomy pedicle screw fixation and L5S1 left sided microdiscectomy hemilaminotomy foraminotomy earlier today. Postop pain appears well controlled. Denies f/c/n/v/ d/c, chest pain, SOB, abd pain. Allergies: Coded Allergies: IBUPROFEN (Verified Allergy, Severe, swollen eyes, 03/14/17) Medication History Scheduled Citalopram Hydrobromide* (Citalopram Hbr*), 10 MG ORAL DAILY, (Reported) Famotidine (Famotidine), 20 MG ORAL DAILY, (Reported) Folic Acid* (Folic Acid*), 1 MG ORAL DAILY, (Reported) Hydrocodone Bit/Acetaminophen 10-325* (Rochdale 10-325*), 1 TAB ORAL EVERY 8 HOURS, (Reported) Metoprolol Succinate* (Metoprolol Succinate*), 100 MG ORAL DAILY, (Reported) Ramipril* (Ramipril*), 5 MG ORAL DAILY, (Reported) Rosuvastatin Calcium* (Crestor*), 40 MG ORAL DAILY, (Reported) Patient History History Provided By: Patient, Family Member, Medical Record, PMD Healthcare decision maker yandy() Resuscitation status Full Code Advanced Directive on File No Past Medical/Surgical History Past Medical/Surgical History: (1) Pars fractures L3-4,and L5-S1 herniation (2) HNP (herniated nucleus pulposus), lumbar (3) HLD (hyperlipidemia) (4) HTN (hypertension) (5) GERD (gastroesophageal reflux disease) (6) Depression Family History Family History: (1) No significant family history Social History Social History: (1) No significant social history Review of Systems ROS Narrative CONSTITUTIONAL: No weight loss, fever, chills, weakness or fatigue. HEENT: Eyes: No visual loss, blurred vision, double vision or yellow sclerae. Ears, Nose, Throat: No hearing loss, sneezing, congestion, runny nose or sore throat. SKIN: No rash or itching. CARDIOVASCULAR: No chest pain, chest pressure or chest discomfort. No palpitations or edema. RESPIRATORY: No shortness of breath, cough or sputum. GASTROINTESTINAL: No anorexia, nausea, vomiting or diarrhea. No abdominal pain or blood. NEUROLOGICAL: No headache, dizziness, syncope, paralysis, ataxia, numbness or tingling in the extremities. No change in bowel or bladder control. MUSCULOSKELETAL: No muscle, back pain, joint pain or stiffness. HEMATOLOGIC: No anemia, bleeding or bruising. LYMPHATICS: No enlarged nodes. No history of splenectomy. PSYCHIATRIC: No history of depression or anxiety. ENDOCRINOLOGIC: No reports of sweating, cold or heat intolerance. No polyuria or polydipsia. ALLERGIES: No history of asthma, hives, eczema or rhinitis. Physical Exam Physical Exam Narrative General: alert, cooperative, no distress, appears stated age Head: normocephalic, without obvious abnormality, atraumatic Eyes: conjunctivae/corneas clear. PERRL, EOM's intact Throat: lips, mucosa, and tongue normal. MMM Neck: supple, symmetrical, trachea midline, and no JVD Lungs: clear to auscultation bilaterally Heart: regular rate and rhythm, S1, S2 normal, no murmur, click, rub or gallop Abdomen: soft, non-tender, non-distended, bowel sounds normal; no masses or organomegaly Extremities: extremities normal, atraumatic, no cyanosis or edema Pulses: 2+ and symmetric Skin: skin color, texture, turgor normal; dressing c/d/i Neurologic: grossly normal, no focal deficits Last 24 Hour Vital Signs Date Time Temp Pulse Resp B/P (MAP) Pulse Ox O2 Delivery O2 Flow Rate FiO2 05/14/17 14:24 98.8 05/14/17 14:00 98.8 54 15 108/68 97 Nasal Cannula 3.0 05/14/17 13:45 58 15 110/72 97 Nasal Cannula 3.0 05/14/17 13:30 57 15 113/71 97 Nasal Cannula 3.0 05/14/17 13:15 58 20 106/76 98 Nasal Cannula 3.0 05/14/17 13:03 61 20 110/72 97 Nasal Cannula 3.0 05/14/17 12:45 62 20 126/80 97 Nasal Cannula 3.0 05/14/17 12:30 67 20 130/80 98 Nasal Cannula 3.0 05/14/17 12:22 64 20 131/81 100 Simple Mask 8.0 05/14/17 12:17 65 20 141/80 100 Simple Mask 8.0 05/14/17 12:12 99.3 68 20 139/80 100 Simple Mask 8.0 05/14/17 12:12 68 16 100 05/14/17 06:37 96.7 54 18 140/86 99 Room Air Intake and Output 05/13/17 05/14/17 19:00 07:00 # Voids 1 Height (Feet): 5 Height (Inches): 3.00 Weight (Pounds): 175 Medications Current Medications Medications (Trade) Dose Ordered Sig/Shannan Route PRN Reason Start Time Stop Time Status Last Admin Dose Admin Acetaminophen (Tylenol) 650 mg Q4H PRN ORAL headache or temp>101 05/14/17 07:30 06/13/17 07:29 Acetaminophen/ Hydrocodone Bitart (Rochdale 5/325) 1 tab Q3H PRN ORAL pain score 1-3 05/14/17 07:30 05/21/17 23:59 Acetaminophen/ Hydrocodone Bitart (Rochdale 7.5/325) 1 ea Q3H PRN ORAL pain score 4-6 05/14/17 07:30 05/21/17 23:59 Acetaminophen/ Hydrocodone Bitart (Rochdale 7.5/325) 2 ea Q3H PRN ORAL pain scale 7-10 05/14/17 07:30 05/21/17 23:59 05/14/17 16:41 Carisoprodol (Soma) 350 mg TIDPRN PRN ORAL SPASM 05/14/17 07:30 06/13/17 07:29 Cefazolin Sodium 1 gm/Dextrose 55 ml @ 110 mls/hr Q8H IV 05/14/17 15:30 05/15/17 07:59 05/14/17 16:19 Cetylpyridinium Chloride (Cepacol) 1 lozenge EVERY 2 HOURS PRN PUNEET To Patient Comfort 05/14/17 07:30 06/13/17 07:29 Dexamethasone Sodium Phosphate (Decadron 4mg/ml vial) 4 mg Q6HR IVP 05/14/17 18:00 05/15/17 12:01 Docusate Sodium (Colace) 100 mg TWICE A DAY ORAL 05/14/17 09:00 06/13/17 08:59 Hydromorphone HCl (Dilaudid) 1 mg Q2H PRN IVP Breakthrough Pain 05/14/17 07:30 05/21/17 23:59 Hydromorphone HCl (Dilaudid) 1 mg Q4H PRN SUBQ Mild Pain (Pain Scale 1-3) 05/14/17 07:30 05/21/17 23:59 Hydromorphone HCl (Dilaudid) 2 mg Q3H PRN SUBQ Severe Pain (Pain Scale 7-10) 05/14/17 07:30 05/21/17 23:59 Hydromorphone HCl (Dilaudid) 2 mg Q4H PRN SUBQ Moderate Pain (Pain Scale 4-6) 05/14/17 07:30 05/21/17 23:59 Magnesium Hydroxide (Mom) 30 ml QIDPRN PRN ORAL Constipation 05/14/17 07:30 06/13/17 07:29 Metoclopramide HCl (Reglan) 10 mg Q6H PRN IVP Nausea & Vomiting 05/14/17 07:30 06/13/17 07:29 Naloxone HCl (Narcan) 0.1 mg PRN PRN IVP RR<12/min, pt unarousable 05/14/17 07:30 06/13/17 07:29 Ondansetron HCl (Zofran) 4 mg Q6H PRN IVP Nausea & Vomiting 05/14/17 07:30 06/13/17 07:29 Phenol/Menthol (Chloraseptic) 1 spray Q3H PRN ORAL To Patient Comfort 05/14/17 07:30 06/13/17 07:29 Sodium Chloride 1,000 ml @ 100 mls/hr Q10H IV 05/14/17 15:30 06/13/17 15:29 05/14/17 16:19 Temazepam (Restoril) 15 mg HSPRN PRN ORAL Insomnia 05/14/17 07:30 05/21/17 23:59 Assessment/Plan Problem List: (1) Pars fractures L3-4,and L5-S1 herniation (2) HLD (hyperlipidemia) ICD Codes: E78.5 - Hyperlipidemia, unspecified SNOMED: 36340661 (3) HTN (hypertension) ICD Codes: I10 - Essential (primary) hypertension SNOMED: 78914716 (4) GERD (gastroesophageal reflux disease) ICD Codes: K21.9 - Gastro-esophageal reflux disease without esophagitis SNOMED: 982768228 (5) Depression ICD Codes: F32.9 - Major depressive disorder, single episode, unspecified SNOMED: 69824056 Status: stable Assessment/Plan Appreciate surgery rec's s/p L3,L4, L5 solis gonzáles osteotomy/kitchen laminectomy pedicle screw fixation and L5S1 left sided microdiscectomy hemilaminotomy foraminotomy on 05/14/17 Post operative recommendations include: - encourage mobilization/ambulation - encourage incentive spirometry to optimize pulmonary hygiene - DVT/GI prophylaxis as appropriate - PT/OT - pain control, supportive care, bowel regimen D/w pt/family, RN, SW/CM, s urgery regarding mgmt and dispo Shawna Acharya M.D. May 14, 2017 17:22
[2017-05-14] MEDS: Dexamethasone 4mg/ml vial IVP SCH (18:53)
[2017-05-14] MEDS ORDERED: Atorvastatin 20mg tab ORAL SCH (21:00)
[2017-05-15 00:05] VITALS: BP 149/88
[2017-05-15] MEDS: ceFAZolin sod 1 GM in D5W 55 ML IV SCH ×2 (00:18→07:58)
[2017-05-15] MEDS: Dexamethasone 4mg/ml vial IVP SCH ×3 (00:18→12:36)
[2017-05-15] MEDS: NS w/KCl 20mEq 1,000 ML IV SCH ×2 (01:51→11:30)
[2017-05-15 04:52] VITALS: BP 158/92
[2017-05-15 08:00] VITALS: BP 149/94
[2017-05-15] MEDS ORDERED: Ramipril 5mg cap ORAL SCH (09:00)
[2017-05-15] MEDS ORDERED: Metoprolol Succinate XL 100mg tab ORAL SCH (09:00)
[2017-05-15] MEDS ORDERED: Citalopram Hydrobromide 10mg Tab ORAL SCH (09:00)
[2017-05-15] MEDS: Docusate 100mg cap ORAL SCH (09:11)
[2017-05-15] MEDS: HYDROcodone/Acetamin 7.5/325 tab ORAL PRN (09:23)
--- NOTE | 2017-05-15 10:15 | 48 Hour Post Anesthesia Eval ---
Post Anesthesia Evaluation Procedure: PSF L3-4, L4-5, Microdiscectomy L5-S1 Date of Evaluation: May 15, 2017 Airway: patent Nausea: No Vomiting: No Pain Intensity: 2 Hydration Status: adequate Cardiopulmonary Status: at baseline Mental Status/LOC: patient returned to baseline Post-Anesthesia Complications: 0 Follow-up care needed: N/A - further care as per primary team FAIZA MONROE M.D. May 15, 2017 10:15
[2017-05-15 12:00] VITALS: BP 136/85
[2017-05-15] MEDS ORDERED: Tubing IV Secondary IV ONE (14:57)
--- NOTE | 2017-05-15 20:48 | General Progress Note ---
Assessment/Plan Assessment/Plan Pars fractures L3,4,and L5S1 herniation L3,L4, L5 solis gonzáles osteotomy/kitchen laminectomy pedicle screw fixation and L5S1 left sided microdiscectomy hemilaminotomy foraminotomy PLAN 1. incentive spirometry 2. Lovenox 3. PT evaluation and therapy 4. Hydration 5. Pain management 6. discharge today (seen earlier) Subjective Allergies: Coded Allergies: IBUPROFEN (Verified Allergy, Severe, swollen eyes, 03/14/17) Subjective care noted doing well plans for discharge noted Objective Last 24 Hour Vital Signs Date Time Temp Pulse Resp B/P (MAP) Pulse Ox O2 Delivery O2 Flow Rate FiO2 05/15/17 12:00 98.0 65 19 136/85 97 05/15/17 09:45 64 149/94 05/15/17 09:11 149/94 05/15/17 08:00 98.7 64 19 149/94 97 05/15/17 04:52 98.2 72 18 158/92 97 05/15/17 00:05 97.9 67 17 149/88 96 05/14/17 20:50 97.8 65 18 141/91 97 Intake and Output 05/14/17 05/15/17 19:00 07:00 Intake Total 2300 ml 360 ml Output Total 300 ml 1000 ml Balance 2000 ml -640 ml Intake Oral 360 ml IV Total 2300 ml Output Urine Total 200 ml 1000 ml Estimated Blood Loss 100 ml # Voids 5 Height (Feet): 5 Height (Inches): 3.00 Weight (Pounds): 175 Objective WDWN NAD clear breath sounds bilaterally without rhonchi or wheeze [id number] without MRG NABS nontender no HSM no CCE nonfocal SHAWNA COLVIN May 15, 2017 20:48
--- NOTE | 2017-05-16 08:21 | Diagnostic Imaging Report ---
Indication: Pain, intraoperative Technique: Intraoperative images Comparison: none Findings: Intraoperative images document posterior fusion of what are presumably L3-L5 Impression: Intraoperative imaging, as described
--- NOTE | 2017-05-16 08:40 | Discharge Summary ---
Discharge Summary Hospital Course Date of Admission May 14, 2017 at 05:42 Date of Discharge May 15, 2017 at 14:58 Admitting Diagnosis HPI Jens Maciel is a 62 year old male who was admitted on May 14, 2017 at 05:42 for Lumbar Herniated Disc Hospital Course [id number] Discharge Discharge Disposition Patient was discharged to Home (01) Discharge Diagnoses: Pearl Cooper NP May 16, 2017 08:40
--- NOTE | 2017-05-16 09:00 | Operative Note - Dictated ---
DATE OF OPERATION: 05/14/2017 Stage 2 of 2 SURGEON: Margarito Johnson M.D., Orthopaedic Spine Surgeon. ANESTHESIA: General endotracheal anesthesia. PREOPERATIVE DIAGNOSES: 1. Intractable back pain. 2. Intractable leg pain. 3. Worsening radiculopathy. 4. Weakness. 5. Herniated nucleus pulposus, L3, L4, and L5. 6. Neural foraminal stenosis, L3, L4, and L5. POSTOPERATIVE DIAGNOSES: 1. Intractable back pain. 2. Intractable leg pain. 3. Worsening radiculopathy. 4. Weakness. 5. Herniated nucleus pulposus, L3, L4, and L5. 6. Neural foraminal stenosis, L3, L4, and L5. PROCEDURES PERFORMED: 1.Bilateral Nguyễn laminectomy/Barragan-Hung osteotomy, and complete facetectomy at L3-L4 and L4-L5. 2. L3, L4, and L5 posterolateral fusion using allograft bone, local autograft, and residual bone morphogenetic protein. 3. Percutaneous pedicle screw fixation at L3, L4, and L5 using Synthes Emergent screws of 45 mm length of 6 mm diameter. 4. Confirmation of pedicle screws placement using neural monitoring. 5. Use of intraoperative microscope. 6. Left-sided L5-S1 microdiscectomy, hemilaminotomy, and foraminotomy. 7. Supervision and interpretation of intraoperative fluoroscopy. 8. Supervision and interpretation of somatosensory-evoked potential and free running EMG monitoring. ESTIMATED BLOOD LOSS: 50 mL. COMPLICATIONS: None. INDICATIONS FOR THE PROCEDURE: The patient is a 62-year-old male who presents for Stage 2 in regards to their intractable back pain and radiculopathy. This operative note details the second stage of our surgery. Prior to surgery, we had a long discussion with [facility] regarding definitive surgical treatment options. We had a long discussion with the patient regarding the risks, alternatives, and benefits of procedure. Our description of the risks included a discussion in person as well as a signed consent which detailed all pertinent risks and the procedure itself. Briefly, our discussion included but was not limited to infection, bleeding, pseudarthrosis, spinal cord injury, neurovascular injury, dural tear, CSF leak, neuropathy, paralysis, permanent weakness/drop foot, paresthesias, blindness, palsy and weakness. The patient understood there may be a need for revision surgery or additional procedures. Approach related complications including dysphonia, dysphagia, blindness, permanent vocal cord and neural injury, hematoma, swallowing and breathing difficulty; medical complications including liver, kidney, shock, and cardiopulmonary failure; anesthesia complications including , swelling, damage to the musculature, larynx, esophagus, trachea, blood vessels and muscles and lungs during this surgical procedure. Injury to deeper structures may be temporary or permanent. The patient understood these and elected to proceed. A written and verbal consent was given. We discussed the pros and cons of all the alternatives. We discussed the uncertainties associated with the decision. Afterwards, I assessed the patients understanding and explored their preferences. All questions were answered and no guarantees were given. This now delineates the second stage of the procedure. OPERATIVE FINDINGS: A significant amount of neural foraminal encroachment along the thecal sac and neural foraminal elements therein. This neural foraminal stenosis at L3, L4, L5 was more than appreciated on the MRI. DESCRIPTION OF PROCEDURE: Under the benefit of general endotracheal anesthesia and with the assistance of the entire operative team, the patient was moved from the radiolucent operative table in the prone position onto a Sameer frame. The head was secured and positioned appropriately. Bilateral arms were secured with Gel Pads and foam and all bony prominences were padded. The bilateral lower extremity SCD and LEBRON hose we replaced for DVT prophylaxis. A surgical timeout was called which corroborated our planned procedure. Preoperative antibiotics were administered within 30 minutes of the incision for prophylaxis. Using lateral radiography, the operative levels were delineated. An incision was marked based on our interpretation of anterior posterior and lateral radiography and afterwards the body was prepped and draped in the usual sterile manner. The family was notified that we were ready to commence surgery and were called in the waiting room hourly for updates. An incision was based on our anterior posterior and lateral fluoroscopic image to center the incision at the L3, L4, L5 interspace. The wound was prepped and draped in the usual sterile fashion. Using a scalpel, a midline incision was made and the subcutaneous tissue was mobilized so that within the fascia two Chato based incisions were made, one incision on the left and then right side focusing on her pedicle at L3, L4, L5 through a percutaneous stab wound approach. All pedicles were cannulated in the exact same fashion for each level. This was performed in the following manner. The second incision was made slightly off midline and geared towards her L3, L4, L5 interspace approached. Using Jamshidi needles under direct AP and lateral fluoroscopic visualization I approached the L3, L4, L5 pedicles with Jamshidi needles making sure to leave clearance along the medial pedicle boundary/wall, and next we advanced our bilateral pedicle screw entry points under AP and lateral fluoroscopy at both our pedicles bilaterally. Next, percutaneous screws were loaded on the left initially then right hand side and on the contralateral side, synthes emergent Screws 6x45mm were inserted in percutaneous fashion and afterwards these screws were stimulated. Next, a mason was lordosed and placed percutaneously through the incision. Next, we turned our attention to our Barragan-Hung type osteotomy, facetectomy and decompression. This was performed at each level in the exact same fashion. Based on AP and lateral fluoroscopy, we centered this incision over the facet joints at L3, L4, and L5 of the contralateral side. This was taken down through the skin and subcutaneous tissues until the overlying pars facet joints of L3, L4, and L5 were visualized under microscopic visualization. There was severe pressure on this neural foramina as palpated with the Bent dental and a Nolasco ball probe. The pars was then visualized on the contralateral side and this was carefully resected along with the lamina and superior articular process using a Spotbros Rowdy AM8 drill bit. This was completely resected using a Barragan-Hung type osteotomy and medial laminar removal and facetectomy. There was a significant amount of bleeding which we encountered at this point and this was maintained and controlled with a combination of FloSeal, Gelfoam and bipolar cautery. After complete resection of the facet joints, we noticed the lateral thecal sac margin and the neural elements. Next, I turned my attention to the stimulation of pedicle screws. All pedicle screws were stimulated with somatosensory evoked potentials ranging over 20 milliampere with no response. Afterwards percutaneous rods from the Synthes pedicle screw system were inserted and placed percutaneously and locking caps were placed. Final radiographs confirmed appropriate placement of all hardware, screws and our PEEK cages along with a anabaptism of the lumbar lordosis. The wounds were copiously irrigated with antibiotic impregnated saline. Afterwards, FloSeal was placed to address residual bleeding. Powdered antibiotics were directly poured into the wound to provide for direct antibiosis. Next I turned my attention to closure. Fascial closure was performed with 1-0 Vicryl suture. Subcutaneous tissues were reapproximated with 2-0 Vicryl. The superficial subcutaneous skin was closed with a running Monocryl and Dermabond. Dressings consisted of Tegaderm and 4 x 4 gauze. An incision was based on our lateral fluoroscopic image to center the incision at the L5-S1 interspace. The wound was prepped and draped in the usual sterile fashion. Using a scalpel a midline incision was taken down through the skin and subcutaneous tissues until the overlying hemilamina of L5-S1 were visualized. Next, using meticulous hemostasis, hemilaminotomies were dissected and retractors were placed. Using a [employer]oi[employer] dental, we confirmed placement at the L5-S1 interspace. We next turned our attention to our decompression. A standard hemilaminotomy and foraminotomy was performed at each level in standard fashion using a Midas-Rowdy type AM8 drill bit, straight and angled curettage, and Kerrison 4 rongeurs until the lateral thecal sac margin and traversing nerve root was visualized. All remainders of the ligamentum flavum and lateral bony margins were resected in total with angled curettage and Kerrison 4 rongeurs until the lateral thecal sac margin and traversing nerve root was visualized and decompressed. We next turned our attention toward our L5-S1 microdiscectomy on the left side. A Montgomery 4 was used to gently mobilize the thecal sac medially and this was held retracted with a bayonetted nerve root retractor. It was at this point that we noted a large broad-based disc protrusion with encroachment dorsally on the thecal sac neural foraminal contents. A bayonet and nerve root retractor was then placed carefully to retract the thecal sac and a discectomy was performed using a combination of a long handled 15 blade scalpel, downgoing and straight pituitaries and downgoing curettage. Afterward the disc space was irrigated twice with 20 mL of antibiotic-impregnated saline. All loose and free-floating disc fragments were carefully resected with a narrow pituitary. Having been satisfied with our decompression after our discectomy of all neural elements, we next turned our attention to our neural foraminoplasty/foraminotomy. This was performed with kerrison 3 and 4 rongeurs and pituitaries. Afterwards, hemostasis was obtained with 60 mL of antibiotic-impregnated saline followed by FloSeal and Gelfoam. After sponge and needle count were found to be correct, we next turned our attention to closure. Closure consisted of 1-0 Vicryl in standard interrupted fashion. Zosyn was placed deep to the fascia and superficial to the fascia for antibiotic prophylaxis. Skin closure was performed with 2-0 Vicryl in interrupted fashion followed by a running Monocryl for the skin. Final dressings consisted of Dermabond for the superficial skin, Telfa and Tegaderm. The patient tolerated the procedure well and will now be admitted to the spine floor for further observation. The details of the entire surgery were related to the patients family/representatives upon the conclusion of the procedure in the family waiting room. Margarito Johnson M.D. DR: BETTYE JOB#: [id number] CC: TATYANA
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
== END 2017-05-15 14:58 | disposition home or self-care (01) | DRG 455 ==
LOC: SDSOVERFLO 05-14 05:42 → 3E 05-14 14:10
PROC: 0SB20ZZ Excision of Lumbar Vertebral Disc, Open Approach (ICD-10-PCS; principal; 2017-05-14 07:00)
PROC: 0SG10AJ Fusion of 2 or more Lumbar Vertebral Joints with Interbody Fusion Device, Posterior Approach, Anterior Column, Open Approach (ICD-10-PCS; principal; 2017-05-14 07:00)
PROC: 0SG10K1 Fusion of 2 or more Lumbar Vertebral Joints with Nonautologous Tissue Substitute, Posterior Approach, Posterior Column, Open Approach (ICD-10-PCS; principal; 2017-05-14 07:00)
PROC: 0SG0071 Fusion of Lumbar Vertebral Joint with Autologous Tissue Substitute, Posterior Approach, Posterior Column, Open Approach (ICD-10-PCS; principal; 2017-05-14 07:00)
DX: M51.16 Intervertebral disc disorders with radiculopathy, lumbar region (principal); I10 Essential (primary) hypertension; M48.061 Spinal stenosis, lumbar region without neurogenic claudication; E78.00 Pure hypercholesterolemia, unspecified; I25.10 Atherosclerotic heart disease of native coronary artery without angina pectoris; Z95.5 Presence of coronary angioplasty implant and graft; F32.89 Other specified depressive episodes
CPT/HCPCS: 36415; 72020; 76001; 86850; 86900; 86901; 87081; 94003; 94150; J2250; J2405